=== PATIENT | female | born 1935 | race Caucasian/White ===

== ENCOUNTER 2023-10-22 08:48 | Emergency (ER) | payer MEDICARE ==
[~2023-10-22] VITALS: Ht 152.4 cm; Wt 52.0 kg
[2023-10-22 09:06] VITALS: O2SAT 97
[2023-10-22] MEDS: CARBAMIDE PEROXIDE 6.5% OTIC SOLN 15ML EACH EAR ONE (10:15)
[2023-10-22 13:05] VITALS: BP 127/64; PULSE 70; RESP 18; TEMP 97.9
== END 2023-10-22 13:13 | disposition home or self-care (01) ==
LOC: ER 08:48
DX: H61.23 Impacted cerumen, bilateral (principal)
CPT/HCPCS: 99281